=== PATIENT | male | born 1965 ===

== ENCOUNTER 2020-02-25 15:05 | Emergency (ER) | payer MEDICAID ==
[~2020-02-25] VITALS: Ht 172.7 cm; Wt 80.7 kg
--- NOTE | 2020-02-25 15:15 | NUR ---
Patient BIB [id number]. Patient noted crying and tachypneic. Patient able to ambulate from [facility] to ER bed. Per [facility] report, [facility] was called to patients residence by neighbors. Patient was found with empty nyquil bottle and a rope nearby. Patient A&O x4. Speech is clear and able to make needs known / follow commands. Patient states that he and his girlfriend broke up last week and he was feeling depressed. Denies any SI / HI intent at this time. patient also states that he has drank "four shots of vodka around noon today". Denies any nausea, vomiting, CP, blurred vision. Safety precautions implemented. s/r up x2. frequent visual checks done
[2020-02-25 15:34] LABS: MONOCYTES # (AUTO) 1.1 K/uL (2.0-10.0)
--- NOTE | 2020-02-25 15:35 | NUR ---
[employer] at bedside
[2020-02-25 15:40] LABS: BASOPHILS # (AUTO) 0.1 K/uL (0.0-8.0); BASOPHILS % (AUTO) 0.7 % (0.0-2.0); EOSINOPHILS % (AUTO) 0.5 % (0.0-7.0); HEMATOCRIT 45.1 % (36.7-47.1); HEMOGLOBIN 15.2 g/dL (12.5-16.3); LYMPHOCYTES # (AUTO) 5.4 K/uL (20.0-40.0); MEAN CORPUSCULAR HGB CONC 34 g/dL (32.5-36.3); MEAN CORPUSCULAR VOLUME 92.1 fL (73.0-96.2); MONOCYTES % (AUTO) 11.3 % (0.0-11.0); NEUTROPHILS # (AUTO) 3.3 K/uL (1.8-8.9); NEUTROPHILS % (AUTO) 33.5 % (38.5-71.5); PLATELET COUNT (AUTO) 175 K/uL (152-348); RED BLOOD CELL COUNT(AUTO) 4.89 MIL/uL (4.06-5.63); WHITE BLOOD COUNT (AUTO) 9.9 K/uL (3.6-10.2)
[2020-02-25 15:49] LABS: ALANINE AMINOTRANSFERASE 345 U/L (16-63); ALKALINE PHOSPHATASE 66 U/L (50-136); ASPARTATE AMINOTRANSFERASE 376 U/L (15-37); BILIRUBIN,DIRECT 0.4 mg/dL (0.0-0.2); BILIRUBIN,TOTAL 1.1 mg/dL (0.2-1.0); CARBON DIOXIDE 19 mmol/L (21-32); CHLORIDE 95 mmol/L (98-107); CREATININE 1.1 mg/dL (0.6-1.3); GLUCOSE 112 mg/dL (74-106); POTASSIUM 3.3 mmol/L (3.5-5.1); TOTAL PROTEIN, SERUM 8.7 g/dL (6.4-8.2)
[2020-02-25 15:49] LABS: *BLOOD, URINE 2+ (NEGATIVE); *CLARITY,URINE CLEAR (CLEAR); *COLOR,URINE YELLOW (YELLOW); *KETONES,URINE 2+ (NEGATIVE); LEUKOCYTE ESTERASE ,URINE NEGATIVE (NEGATIVE); NITRITE, URINE NEGATIVE (NEGATIVE); UGLUCOSE NEGATIVE (NEGATIVE)
[2020-02-25 15:51] LABS: ETHANOL 254 MG/DL (0-0)
[2020-02-25 15:54] LABS: *BILIRUBIN,URIN 1+ (NEGATIVE)
[2020-02-25 15:56] LABS: UREA NITROGEN, BLOOD 9 mg/dL (7-18)
[2020-02-25 16:07] LABS: ACETAMINOPHEN < 2.0 ug/mL (10-30)
[2020-02-25 16:15] LABS: *AMPHETAMINE, URINE NEGATIVE (NEGATIVE); *BARBITURATE, URINE NEGATIVE (NEGATIVE); *CANNABINOID, URINE NEGATIVE (NEGATIVE); *COCCAINE, URINE NEGATIVE (NEGATIVE); *OPIATE, URINE NEGATIVE (NEGATIVE); *PHENCYCLIDINE SCREEN,URINE NEGATIVE (NEGATIVE)
--- NOTE | 2020-02-25 16:25 | NUR ---
Provided patient with fluids. Patient tolerated well. Denies any SI / HI
[2020-02-25 17:04] LABS: BACTERIA,URINE FEW /HPF (NONE SEEN); SQUAMOUS EPITHELIAL CELL,UR FEW /HPF (NONE SEEN); WBC,URINE 0-3 /HPF (0-3)
[2020-02-25 17:06] LABS: LYMPHOCYTES % (MANUAL) 42 % (20-40); MONOCYTES % (MANUAL) 10 % (2-10); NEUTROPHILS % (MANUAL) 40 % (42-75); REACTIVE LYMPHOCYTES 8 % (0-0)
--- NOTE | 2020-02-25 17:17 | NUR ---
Called Susan [facility] for CRISIS team consult. left message on VM
--- NOTE | 2020-02-25 17:30 | NUR ---
Provided patient with dinner tray. Able to tolerate food and fluids. Denies any pain or discomfort at this time. Denies any SI / HI
--- NOTE | 2020-02-25 17:33 | NUR ---
Spoke with Susan [facility]ORTES[facility] and given an ETA of 45 mins. Patient made aware. no further concers at this time
--- NOTE | 2020-02-25 18:38 | NUR ---
Susan [employer] at bedside to evaluate patient
--- NOTE | 2020-02-25 19:00 | NUR ---
Patient discharged to home in stable condition. Referrals for oupatient clinics given to patient by previous nurse. Written and verbal after care instructions given. Patient appears calm and not in any distress, states he is feeling better. Patient verbalizes understanding of instructions. Stressed follow up or return to ER for worsening s/s. All belongings left with patient
[2020-02-25 19:19] VITALS: BP 125/74
== END 2020-02-25 19:00 | disposition home or self-care (01) ==
LOC: ER 15:07
DX: R45.851 Suicidal ideations (principal); F32.9 Major depressive disorder, single episode, unspecified; F10.129 Alcohol abuse with intoxication, unspecified; Y90.8 Blood alcohol level of 240 mg/100 ml or more
CPT/HCPCS: 36415; 71045; 80048; 80076; 80307 ×2; 80329; 81001; 85007; 85025; 87426; 93005 ×2; 99285; G0480; 70030-TC; A4663